=== PATIENT | female | born 1950 | race African-American/Black ===

== ENCOUNTER 2017-01-24 20:53 | Emergency (ER) | payer OTHER ==
--- NOTE | ~2017-01-24 | EKG ---
PATIENT: ASHLY HOWARD UNIT #: [id number] Ventricular Rate: 86 BPM Atrial Rate: 86 BPM P-R Interval: 140 ms QRS Duration: 86 ms Q-T Interval: 370 ms QTC Calculation(Bezet): 442 ms P Stacy: 73 degrees Calculated R Stacy: -56 degrees Calculated T Stacy: 61 degrees Diagnosis Line: Normal sinus rhythm Diagnosis Line: Left anterior fascicular block Diagnosis Line: Moderate voltage criteria for LVH, may be normal Diagnosis Line: variant Diagnosis Line: Abnormal ECG Diagnosis Line: When compared with ECG of 24-JAN-2017 19:09, Diagnosis Line: (unconfirmed) Diagnosis Line: No significant change was found Diagnosis Line: Confirmed by HERMINIO PERRIN MD ([id number]) on 01/25/2017 Diagnosis Line: 5:42:42 PM INTERPRETING MD: MARYCHUY BA
--- NOTE | ~2017-01-24 | CR72 ---
[facility] A Service of [facility] & [facility] RADIOLOGY TEXT RESULTS PATIENT: LEE LIMON LOCATION: [facility] : 46 UNIT #: [id number] AGE: [address]: Yaya Tafoya MD SEX: F ORDER DR: [id number] [facility] [address] [place], [place] [address] [id number] E MR#: [id number] Acc #: [id number] NAME: LEE LIMON : 1950 SEX: F STUDY DATE/TIME: 01/24/2017 19:58 UNIT: [facility] ROOM: STUDY DESCRIPTION: CR Chest Single View Portable Attending Physician: Yaya Tafoya Ordering Physician: Ed Jose J Wang M.D. Primary Care Physician: [facility] [place] MEDICAL IMAGING REPORT This report is preliminary unless electronic signature is present EXAM Portable chest, 01/25/2016 HISTORY Chest pain since yesterday. FINDINGS Borderline cardiac enlargement. Pulmonary vascularity is normal. No airspace infiltrates. Probable minimal atelectasis in the lateral left base is stable compared to 11/03/2016. Mild mid-left thoracic curve. IMPRESSION Borderline cardiac enlargement. With probable mild subsegmental atelectasis in the lateral left lung base. No infiltrates in the remainder of the lungs. Dictated by... Jasson Blevins M.D. THIS IS AN ELECTRONICALLY VERIFIED REPORT Jasson Blevins M.D. at 01/25/2017 2:20 PM TG/valdo TD: 01/25/2017 04:32 JOB #: [id number] MEDICAL IMAGING REPORT COPY
[2017-01-24 19:58] LABS: BASOPHIL# 0.1 X10e3 (0-0.3); BASOPHIL% 0.7 % (0-2.5); EOSINOPHIL# 0.1 X10e3 (0-0.7); EOSINOPHIL% 1.3 % (0.0-7.0); HEMATOCRIT 39.4 % (35.0-45.0); HEMOGLOBIN 12.6 gm/dL (12.0-16.0); LYMPHOCYTE# 2.4 X10e3 (1.0-3.5); LYMPHOCYTE% 27.8 % (17.0-45.0); MEAN CELL VOLUME 83.3 FL (83-96); MEAN CORPUSCULAR HEMOGLOBIN 26.6 PG (28-34); MEAN PLATELET VOLUME 10.1 FL (6.5-11.5); MONOCYTE# 0.8 X10e3 (0-1.0); MONOCYTE% 9.9 % (3.0-12.0); NEUTROPHIL# 5.2 X10e3 (1.5-7.1); NEUTROPHIL% 60.3 % (40-75); PLATELET COUNT 152 X10e3 (140-420); RED BLOOD COUNT 4.73 X10e (3.90-5.30); RED CELL DISTRIBUTION WIDTH 13.4 % (11.0-15.5); WHITE BLOOD COUNT 8.5 X10e3 (4.0-10.5)
[2017-01-24 20:01] LABS: DIFF IND NO
[2017-01-24 20:05] LABS: PARTIAL THROMBOPLASTIN TIME 25.4 SECONDS (23.5-31.3)
[2017-01-24 20:07] LABS: POC - CKMB <1.0 ng/mL (0.0-7.9); POC - TROPONIN <0.05 ng/mL (<=0.05)
[2017-01-24 20:11] LABS: ALKALINE PHOSPHATASE 80 U/L (32-92); ALT (SGPT) 19 U/L (10-40); AST (SGOT) 22 U/L (10-42); BILIRUBIN, DIRECT 0.1 mg/dL (0.0-0.2); BILIRUBIN,INDIRECT 0.3 mg/dL (0.0-0.9); BILIRUBIN,TOTAL 0.4 mg/dL (0.2-2.0); BLOOD UREA NITROGEN 8 mg/dL (9-23); CALCIUM SERUM 9.5 mg/dL (8.4-10.2); CARBON DIOXIDE 27 mmol/L (22-31); CHLORIDE 100 mmol/L (100-111); CREATININE SERUM 0.5 mg/dL (0.6-1.4); GLOM FILT RATE Estimated ABOVE60 mL/min (>60); GLUCOSE FASTING 207 mg/dL (70-110); POTASSIUM 3.8 mmol/L (3.5-5.1); PROTEIN TOTAL SERUM 7.7 g/dL (6.0-8.3); SODIUM 137 mmol/L (135-145)
[~2017-01-24 20:53] MED LIST: ASPIRIN81 M2 PO; BAYER CHEWABLE81 MG PO; CLARITIN10 M2 PO; FLEXERIL10 M1 PO; GLUCOPHAGE500 M1 PO; HCTZ; INVOKANA100 MG PO; LEVAQUIN PO; LISINOPRIL; LISINOPRIL20 MG PO; LORTAB 5/500 TA1 TA1 PO; MEDROL DOSEPAK4 MG PO; METFORMIN HCL500 M1 PO; METFORMIN PO; NEXIUM PO; OMEPRAZOLE20 M1 PO; OYSTERCAL-D 501 EACH PO
[2017-01-24 22:09] LABS: POC - CKMB <1.0 ng/mL (0.0-7.9); POC - TROPONIN <0.05 ng/mL (<=0.05)
== END 2017-01-24 23:31 | disposition home or self-care (01) ==
LOC: CED 20:53
PROVIDERS: Emergency Medicine
DX: R07.89 Other chest pain (principal); E11.9 Type 2 diabetes mellitus without complications; I10 Essential (primary) hypertension; Z87.891 Personal history of nicotine dependence; Z79.82 Long term (current) use of aspirin
CPT/HCPCS: 36415; 71010; 80048; 80076; 82553; 84484; 85025; 85610; 85730; 93005; 96374; 96375; 99284; J2270; J2405